=== PATIENT | male | born 1985 | race Caucasian/White ===

== ENCOUNTER → 2016-12-06 | Outpatient (CLI) | payer OTHER ==
--- NOTE | 2016-12-06 10:27 | CT ---
CT Left Foot History: Assess subtalar arthrodesis. Comparison: CT left foot 03/25/2016. Technique: Helical unenhanced images were obtained with multiplanar reformations. Dose reduction tech niques were utilized. Findings: There has been interval placement of two screws across the posterior subtalar joint. The di stal aspect of the more laterally positioned screw approaches the articular surface of the talar dome , however, does not appear to extend through the cortex (sagittal series 602 image 47). There is exte nsive irregularity associated with the subtalar joints, particularly the posterior subtalar joint. Th ere is no appreciable osseous bridging of the posterior subtalar joint. A screw extending obliquely t hrough the talus is again noted. Screw tracks from previous fixation are noted in the calcaneus and t alus. Contour irregularity of the talus and calcaneus suggesting sequela of old trauma and multiple a dditional screw tracts in the calcaneus are again noted. No acute fracture is identified. Corticated osseous structure inferior to the lateral malleolus is unchanged suggesting sequela of old avulsion f racture. Alignment is normal. There are surgical clips at the dorsal aspect of the ankle. Impression: Interval screw placement across the posterior talocalcaneal articulation with no osseous bridging.
== END ==
LOC: FIMAGING 08:48
PROVIDERS: ATTEND Orthopaedic Surgery Foot and Ankle Surgery
DX: Z09 Encounter for follow-up examination after completed treatment for conditions other than malignant neoplasm (principal); Z98.1 Arthrodesis status